=== PATIENT | male | born 1995 | race Caucasian/White ===

== ENCOUNTER 2017-11-15 03:25 | Emergency (ER) | payer BC ==
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
[2017-11-15 05:05] VITALS: BP 110/62
== END 2017-11-15 05:00 | disposition home or self-care (01) ==
DX: S01.80XA Unspecified open wound of other part of head, initial encounter (principal); V00.148A Other scooter (nonmotorized) accident, initial encounter; Y92.480 Sidewalk as the place of occurrence of the external cause